=== PATIENT | male | born 1955 ===

== ENCOUNTER 2017-11-17 02:24 | Inpatient (IN) | payer OTHER ==
--- NOTE | 2017-11-14 01:30 | History & Physical Pre-Op ---
General Information and HPI MD Statement: I have seen and personally examined CASTRO ALVAREZ and documented this H&P. The patient is a 62 year old M who presented with a patient stated chief complaint of right sided neck pain, radiating to his right arm with progressive weakness. Source of Information: patient, family, old records Exam Limitations: no limitations History of Present Illness: Castro is a 62-year-old gentleman who has been complaining of months of progressively worsening and severe right sided neck pain, radiating to his right shoulder and into his right arm with associated numbness/tingling, and weakness. He is a right-handed dominant individual who feels as if his right arm muscles are atrophying. He has participated in physical therapy, had massage performed, and has had cortisone injections which have given him very minimal and temporary symptom relief. His symptoms are worse with activity and with lifting. He has tried anti-inflammatory medications which have been ineffective. Castro's MRI shows severe spinal stenosis with cord compression at C4-5 and large disc herniations at C5-6 and C6-7 on the right side. His MRI also reveals 3 intradural extramedullary enhancing masses measuring 0.9cm in maximal dimension at the T2-3, T7, and T12/L1 levels and a punctate intradural extramedullary enhancing nodule at the T11 level. Due to his progressive weakness and pain as well as his failure to respond to conservative measures, Castro wants nothing more to do with nonsurgical treatment and has been consented for an urgent anterior cervical decompression and fusion with instrumentation and iliac crest bone grafting C4-C7 with possible posterior cervical decompression fusion with instrumentation and iliac crest bone grafting C4-C7 on 11/17/2017. He is also scheduled for an MRI of the brain with and without contrast to rule out primary HAND EDGE BANDER tumor or metastasis. 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 ; Cause: Alzheimer's dementia. FATHER, Age 78. Psychosocial History Who Do You Live With? 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 Exam & Diagnostic Data Last 24 Hrs of Vital Signs/I&O Height: 5'8" Weight: 180lbs. Physical Exam General Appearance Alert, Oriented X3, Cooperative, No Acute Distress Skin No Rashes, No Breakdown, No Significant Lesion HEENT Atraumatic, PERRLA, EOMI, Mucous Membr. moist/pink Neck Supple, No JVD, No thryomegaly, +2 Carotid Pulse wo Bruit Lymphatic Cervical nl Cardiovascular Regular Rate, Normal S1, Normal S2, +S3 Lungs Clear to Auscultation Abdomen Normal Bowel Sounds, Soft, No Tenderness Neurological Hyperreflexia of richard. lower extremities., Weakness of right conservation of resources commissioner strength., Weak +3/5 right biceps, Absent right upper extremity DTR's and hyperreflexic left upper extremity DTR's, + Spurlings on the right Extremities No Clubbing, No Cyanosis, No Edema, Normal Pulses Vascular Normal Pulses Assessment/Plan Assessment/Plan: Assessment: Severe Spinal Stenosis at C4-5, C5-6, and C6-7 with cord compression Plan: Castro is scheduled for an anterior followed by a posterior cervical decompression and fusion C4-C7 with instrumentation and iliac crest bone grafting on 11/17/2017 in addition to an MRI of the brain with and without contrast. We discussed the procedure in full detail as well as the pre-and postoperative course, follow-up care, and anticipated recovery. We also discussed the do's and don'ts and postoperative discharge instructions. We discussed the benefits, alternatives, and risks of the surgery, not to exclude, , paralysis, infection, bleeding, continued pain, failure of the surgery, need for future surgery, DVT, vascular injury, CSF leak, hoarseness, dysphagia, etc., and given these risks, he still wishes to proceed. He has been cleared by his primary care physician for the upcoming surgery. Any changes in this patient's plan is based on this patient's outpatient clinical presentation. He has been advised to stop his Mobic in anticipation of his upcoming surgery to reduce bleeding risk. As Ranked By This Provider Problem List: 1. Hypertension Copies To: Evens HARRISON,Gregorio Attending MD Review Statement Attending Statement Attending MD Statement: examined this patient, discuss w/resident/PA/MINE EXPLORATION ENGINEER, agreed w/resident/PA/MINE EXPLORATION ENGINEER, reviewed images
[~2017-11-17] VITALS: Ht 172.7 cm; Wt 80.3 kg
[~2017-11-17 02:24] MED LIST: COZAAR100 M1 PO
[2017-11-17] MEDS ORDERED: MOBIC15 M1 PO (09:56)
--- NOTE | 2017-11-18 16:52 | Operative Report ---
Operative/Inv Procedure Report Surgery Date: 11/18/17 Name of Procedure: Anterior cervical discectomy and fusion with interdiscal cage and anterior plate C4 5 C5 6 C6 7 resting of morselized iliac crest left anterior crest. Reconstruction of bone graft site with Master graft. Interdiscal cage and autologous bone graft fusion C4 through C7. Anterior plate fixation C4 through C7. Use of fluoroscopy. Pre-Operative Diagnosis: Cervical disc herniation C45 C5 6 C6 7. Post-Operative Diagnosis: Same additional diagnosis of osteoporosis Estimated Blood Loss: 50ml to 100ml Surgeon/Speed Winder: Evens HARRISON,Gregorio FERNANDEZ Anesthesia: general endotracheal tube Operative/Procedure Note Note: After adequate general anesthesia was achieved the patient was placed in the supine position with the head turned left and the shoulders taped to the side. The right side of the neck and left anterior iliac crest were sterilely prepped and draped. Longitudinal incision was carried through the platysma and a blunt dissection was carried medial to the neurovascular bundle lateral to the visceral structures. A needle was placed within the disc space and fluoroscopy was used to identify surgical level. The bridging anterior bone was debrided with the high-speed bur at all 3 levels. There was significant degenerative disc disease. The discectomy was performed with curettes and disc rongeurs at C4 5 C5 6 and C6 7 and the dissection was carried through the annulus posteriorly as well as the posterior longitudinal ligament. The endplates were debrided with the high-speed bur at all 3 levels. Cages were measured selected. An incision was made over the left anterior iliac crest. Subperiosteal dissection was carried medial and lateral to the crest and the oscillating saw was used to collect bone graft. The wound was irrigated packed with Master graft and closed in layers with absorbable suture with nylon in the skin. Cages were packed with morselized bone graft and tamped into position well away from the neural canal at all 3 levels. An anterior plate was then applied with reasonable purchase in all 8 screws and checked with AP and lateral fluoroscopy and found to be appropriate. There is obvious evidence of severe osteoporosis during harvesting the bone graft and instrumentation of the spine and due to the high risk of loosening of the hardware nonunion a decision was made to perform a posterior deep decompression fusion. The wound was copiously irrigated there was no evidence of bleeding. A closure of the platysma was performed with double suture the skin was closed with sterile dressings were applied along with a cervical collar Findings: Severe osteoporosis.
--- NOTE | 2017-11-18 18:06 | Operative Report ---
Operative/Inv Procedure Report Surgery Date: 11/18/17 Name of Procedure: Posterior cervical laminectomies C4 5 6 7 lateral. Instrumented fusion C4 through C7. Lateral mass autologous bone fusion C4 through C7. Placement and removal of Domingo tongs use of fluoroscopy Pre-Operative Diagnosis: Osteoporosis status post anterior fusion C fourth C7 Post-Operative Diagnosis: Same Estimated Blood Loss: 50ml to 100ml Surgeon/Funeral Pre Arrangement Counselor: Evens HARRISON,Gregorio FERNANDEZ Anesthesia: general endotracheal tube Operative/Procedure Note Note: The patient was in the prone position under general anesthesia in the Domingo tongs were applied. He was log rolled onto the operating table back to the neck was sterilely prepped and draped Stoodley incision was created and carried over the dorsal elements with electrocautery. The deep retractors were placed. A metallic marker was placed and fluoroscopy was used to identify surgical level. Laminectomies were performed with the high-speed bur creating keyhole foraminotomies bilaterally at C4 C5 C6 C7 corticotomies were created through the spinous process at C5 and C7 the spinous process of C4 was diminutive and not selected for instrumentation. The lateral masses from C4 through C7 were decorticated with the high-speed bur wires were passed through C5 and C7 twisted together trimmed and bent to the midline. The bone was found to be relatively brittle. There was obvious osteoporosis. On an attempt to instrument the C4 spinous process due to significant osteoporosis the process failed and was not instrumented. Bone graft was packed laterally from C4 to C7 the wound was then irrigated. A closure of the fascia was performed with absorbable suture as was subcutaneous tissue the skin was closed with keturah. After placement sterile dressings the patient was log rolled off the operating table and the Domingo tongs were removed with the patient in a cervical collar. Findings: Osteoporosis
--- NOTE | 2017-11-18 19:06 | Patient Discharge Instructions ---
Acute Coronary Syndrome Inclusion Criteria At DC or during hospital stay patient has or had the following: ACS DIAGNOSIS No Discharge Core Measures Meds if any: Prescribed or Continued at Discharge Meds if any: NOT Prescribed or Continued at Discharge Congestive Heart Failure Inclusion Criteria At DC or during hospital stay patient has or had the following: CHF DIAGNOSIS No Discharge Core Measures Meds if any: Prescribed or Continued at Discharge Meds if any: NOT Prescribed or Continued at Discharge Cerebrovascular accident Inclusion Criteria At DC or during hospital stay patient has or had the following: CVA/TIA Diagnosis No Discharge Core Measures Meds if any: Prescribed or Continued at Discharge Meds if any: NOT Prescribed or Continued at Discharge Venous thromboembolism Inclusion Criteria VTE Diagnosis No VTE Type NONE VTE Confirmed by (Test) NONE Discharge Core Measures - Per Current guidelines, there needs to be overlap - treatment for the first 5 days of Warfarin therapy. - If discharged on Warfarin prior to 5 days of - overlap therapy, the patient will need to be - assessed for post discharge needs including - *Post discharge parental anticoagulation - *Warfarin and/or parental anticoagulation education - *Follow up date to check INR post discharge At least 5 days overlap therapy as Inpatient No Meds if any: Prescribed or Continued at Discharge Note: Overlap Therapy is Warfarin and Anticoagulant Meds if any: NOT Prescribed or Continued at Discharge
[2017-11-18] MEDS ORDERED: VITAMIN D31000 UNI2 PO (19:10)
[2017-11-18] MEDS ORDERED: OS-CAL 500+D31 EAC1 PO (19:10)
[2017-11-18] MEDS ORDERED: DULCOLAX10 M1 RC (19:10)
[2017-11-18] MEDS ORDERED: MULTIVITAMINS1 EAC9 PO (19:10)
[2017-11-18] MEDS ORDERED: TYLENOL EXTRA500 M2 PO (19:10)
[2017-11-18] MEDS ORDERED: COLACE100 M1 PO (19:10)
[2017-11-18] MEDS ORDERED: MILK OF MA400 MG/52 PO (19:10)
[2017-11-18] MEDS ORDERED: PERCOCET 5-3251 EACH PO (19:10)
--- NOTE | 2017-11-18 19:15 | Admission Core Measures ---
Acute Coronary Syndrome (CM) ACS Core Measures Acute Coronary Syndrome Diagnosis No Congestive Heart Failure (NEW) CHF Core Measures Congestive Heart Failure Diagnosis No Cerebrovascular Accident (NEW) CVA Core Measures CVA/TIA Diagnosis No Venous Thromboembolism VTE Core Cr (View Protocol) VTE Risk Factors Surgery No Mechanical VTE Prophylaxis d/t N/A MechProphylax Ordered No VTE Pharm Prophylaxis d/t Surgical Contraindication Problem List As ranked by this Provider includes Assessment & Plan 1. Cervical disc herniation HOME MEDS Home Med List Acetaminophen (Tylenol Extra Strength) 500 MG TABLET 1 TAB PO TID PRN TEMP>101 Bisacodyl (Dulcolax) 10 MG SUPP.RECT 1 SUP RC DAILY PRN CONSTIPATION Calcium Carbonate/Vitamin D3 (Os-Rosalio 500+D3 Caplet) 500 MG-200 TABLET 1 TAB PO BID BONE [facility]ALTH Cholecalciferol (Vitamin D3) 1,000 UNIT TABLET 1 TAB PO DAILY BONE HEALTH Docusate Sodium (Colace) 100 MG CAPSULE 1 CAP PO BID PRN CONSTIPATION Losartan (Cozaar) 100 MG TABLET 1 TAB PO DAILY HTN (Reported) Magnesium Hydroxide (Milk Of Magnesia) 400 MG/5 ML ORAL.SUSP 5 ML PO Q8P PRN CONSTIPATION Multiple Vitamin (Multivitamins) 1 EACH TABLET 1 TAB PO DAILY GENERAL HEALTH Oxycodone HCl/Acetaminophen (Percocet 5-325 MG Tablet) 5 MG-325 MG TABLET 1-2 TAB PO Q4-6 PRN PAIN
--- NOTE | 2017-11-18 20:43 | PN- Neurosurgical ---
Subjective Subjective: POST-OP CHECK pt in bed with 6/10 neck pain. Denies paresthesias, DENNISON, fever, Cp/SOB, N/V. Due to void. has not been OOB yet. Pt is hoping to go home tomorrow Objective Vital Signs and I&Os VSS afebrile Physical Exam: gen- NAD neck-soft collar in place. dressings clean and dry resp-clear cardiac-RRR abd-nd,soft, NT Current Medications: Current Medications Sig/Kelvin Start time Last Medication Dose Route Stop Time Status Admin Acetaminophen 650 MG Q4P PRN 11/18 190 AC PO Bisacodyl 10 MG DAILY NEEDED PRN 11/18 190 AC NM Calcium 600 MG BID 11/18 2100 AC PO Cefazolin Sodium 1,000 MG IQ8 11/19 0000 AC IV 11/19 1601 Cefazolin Sodium 2,000 MG ONCE 11/18 0000 NR IV 11/18 2359 Cholecalciferol 1,000 IU DAILY 11/19 09 AC PO Docusate Sodium 100 MG BID 11/18 2100 AC PO Lactated Ringer's 1,000 ML Q10H 11/18 190 AC IV Lorazepam 0.5 MG Q4P PRN 11/18 191 AC PO 11/25 191 Magnesium Hydroxide 30 ML Q8P PRN 11/18 191 AC PO Midazolam HCl 2 MG .STK-MED ONE 11/18 0706 DC IM 11/18 07 Morphine Sulfate 1 MG Q3P PRN 11/18 1900 AC IV Multivitamins 1 TAB DAILY 11/19 0900 AC PO Ondansetron HCl 4 MG Q6P PRN 11/18 190 AC IV Oxycodone/ 1 TAB Q4P PRN 11/18 190 AC Acetaminophen PO Oxycodone/ 2 TAB Q4P PRN 11/18 190 AC Acetaminophen PO Trimethobenzamide HCl 200 MG Q6P PRN 11/18 1900 AC IM Assessment/Plan Assessment/Plan 62yo M SP ACDF C4-7 and Post cervical laminectomy with fusion C4-7 with iliac graft site POD0. stable pain management ivf overnight reg diet ge-op abx- vanco x1 dose PT- soft collar for stability AM labs dvt ppx- alps and early ambulation dc planning- likely home tomorrow Core Measures Venous Thromboembolism VTE Risk Factors Surgery No Mechanical VTE Prophylaxis d/t N/A MechProphylax Ordered No VTE Pharm Prophylaxis d/t Surgical Contraindication
[2017-11-18 21:04] VITALS: BP 140/90
[2017-11-18 22:37] VITALS: BP 122/80
[2017-11-19] VITALS: BP 126/62
[2017-11-19 01:54] VITALS: BP 138/84
[2017-11-19 06:19] VITALS: BP 144/80
--- NOTE | 2017-11-19 08:46 | RADIOLOGY REPORT ---
EXAMINATION: Fluoroscopy CERVICAL SPINE in the OR CLINICAL INFORMATION: Patient for anterior cervical disc fusion C4-C7. COMPARISON: None available TECHNIQUE: Fluoroscopic assistance was provided to Dr. Horner for the performance of an anterior cervical spine disc fusion. Degenerative dose 1.30 Gycm2 FINDINGS/IMPRESSION: 4 spot films are submitted for review. The first spot film demonstrates a needle localizer placed at C5-C6. The following 3 spot films are obtained following the procedure. These document the hardware of the anterior spinal fusion from C4 to C7. Disc spacers are in place. Please refer to operative notes for further details.
[2017-11-19 10:55] VITALS: BP 120/70
--- NOTE | 2017-11-19 14:31 | PN- Orthopedic ---
Subjective Subjective: Patient is c/o expected postop incisional pain. No Preop arm pain. + mild dysphagia but no secretions or coughing. No fever/chills. No c/o SOB, CP. + Voiding without problems. + flatus. Lauren. po. Ambulating without difficulty. Review of Systems: Remarkable for the above complaints. Objective Vital Signs and I&Os Vital Signs Date Time Temp Pulse Resp B/P B/P Pulse O2 O2 Flow FiO2 Mean Ox Delivery Rate 11/19 1055 98.4 97 19 120/70 95 Room Air 11/19 0619 97.9 102 20 144/80 96 Nasal 2.0L Cannula 11/19 0154 97.7 84 20 138/84 96 Nasal 2.0L Cannula 11/19 0000 Nasal 2.0L Cannula 11/19 0000 98.8 83 20 126/62 96 Nasal 2.0L Cannula 11/18 2237 98.8 90 20 122/80 91 Nasal Cannula 11/189 Nasal 2.0L Cannula 11/18 2104 97.7 78 20 140/90 98 Nasal 2.0L Cannula 11/187 98 Nasal 2.0L Cannula Intake & Output 11/19 1600 11/19 0800 11/19 0000 11/18 1600 11/18 0800 05 0000 Intake Total 400 Output Total Balance 400 Intake, IV 200 Intake, Oral 200 Patient 177 lb 178 lb Weight Physical Exam General Appearance: well developed/nourished, alert, awake, comfortable Head: healed scabs from [facility] richard. Neck: Incisions C/D/I. Dressings changed. Respiratory: no respiratory distress, decreased breath sounds at bases richard. Cardiovascular: regular rate/rhythm Abdomen: soft, non-tender Back: graft incision C/D/I. No active bleeding. Dressing changed. Neurologic/Psychiatric: Neurovascular exam is unchanged and stable with no new or worsening gross motor or sensory loss. Skin: intact, normal color, warm/dry Current Medications: Current Medications Sig/Kelvin Start time Last Medication Dose Route Stop Time Status Admin Acetaminophen 650 MG Q4P PRN 11/18 1899 AC PO Benzocaine/Menthol 1 STEVENSON Q2P PRN 11/18 2099 AC PO Bisacodyl 10 MG DAILY NEEDED PRN 11/18 1899 AC OK Calcium 600 MG BID 11/18 2099 AC 11/19 PO 0923 Cefazolin Sodium 1,000 MG IQ8 11/19 0000 AC 11/19 IV 11/19 1601 0850 Cefazolin Sodium 2,000 MG ONCE 11/18 0000 DC IV 11/18 2359 Cholecalciferol 1,000 IU DAILY 11/19 899 AC 11/19 PO 0923 Docusate Sodium 100 MG BID 11/18 2100 AC 11/19 PO 0923 Hydromorphone HCl 2 MG .STK-MED ONE 11/18 1925 DC IM 11/18 192 Hydromorphone HCl 2 MG .STK-MED ONE 11/18 1904 DC IM 11/18 190 Lactated Ringer's 1,000 ML Q10H 11/18 190 AC 11/19 IV 0449 Lorazepam 0.5 MG Q4P PRN 11/18 1914 AC PO 11/25 1913 Magnesium Hydroxide 30 ML Q8P PRN 11/18 1914 AC PO Morphine Sulfate 1 MG Q3P PRN 11/18 1900 AC 11/18 IV 2342 Multivitamins 1 TAB DAILY 11/19 899 AC 11/19 PO 0923 Ondansetron HCl 4 MG Q6P PRN 11/18 190 AC IV Oxycodone/ 1 TAB Q4P PRN 11/18 190 AC Acetaminophen PO Oxycodone/ 2 TAB Q4P PRN 11/18 190 AC 11/19 Acetaminophen PO 0554 Trimethobenzamide HCl 200 MG Q6P PRN 11/18 190 AC IM Assessment/Plan Assessment/Plan Assessment: S/p ACDF/PCDF C4-C7 with Instr./ICBG Plan: D/C home. D/C IVF. Stairs with PT. Wean off O2. Continue with Percocet and bowel regimen. Will F/U as outpatient. Problem List: 1. Hypertension 2. Cervical disc herniation Core Measures Venous Thromboembolism VTE Risk Factors Surgery No Mechanical VTE Prophylaxis d/t N/A MechProphylax Ordered No VTE Pharm Prophylaxis d/t Surgical Contraindication Attending MD Review Statement Attending Statement Attending MD Statement: discuss w/resident/PA/HEAD BAGGAGE PORTER, agreed w/resident/PA/HEAD BAGGAGE PORTER
== END 2017-11-19 14:42 | DRG 473 ==
LOC: UNDOADMIN 02:24 → SDA 02:24 → ENRESERV 11-18 19:21 → ENTRNSPT 11-18 19:47 → EDTRNSPT 11-18 19:51 → EDTRNSPTSTS 11-18 19:51 → 2NA 11-18 20:00 → CMPTRNSPT 11-18 20:08 → ENPENDDIS 11-19 11:44 → 2NA 11-19 14:42
PROC: 0RB30ZZ Excision of Cervical Vertebral Disc, Open Approach (ICD-10-PCS; principal; 2017-11-18)
PROC: 0RG20A0 Fusion of 2 or more Cervical Vertebral Joints with Interbody Fusion Device, Anterior Approach, Anterior Column, Open Approach (ICD-10-PCS; principal; 2017-11-18)
PROC: 0QB30ZZ Excision of Left Pelvic Bone, Open Approach (ICD-10-PCS; principal; 2017-11-18)
DX: M48.02 Spinal stenosis, cervical region (principal); I10 Essential (primary) hypertension; M50.123 Cervical disc disorder at C6-C7 level with radiculopathy
CPT/HCPCS: 2NAP; 36415; 72040; 87086; 97110-GO; 97116-GO; 97161-GP; C9399; J0131; J0690; J2270; J3490; J7120